=== PATIENT | male | born 1965 | race Caucasian/White ===

== ENCOUNTER 2017-10-22 15:56 | Emergency (ER) | payer BC ==
[2017-10-22] MEDS: ASPIRIN 81 MG TAB.CHEW PO ONE (16:30)
[2017-10-22] MEDS: NITROGLYCERIN SUBLINGUAL 0.4 MG BOTTLE OF 25. SL ONE (16:30)
[2017-10-22 16:53] LABS: BASO # 0.1 x10^3/uL (0.0-0.2); BASO % 1 % (0-3); EOS # 0.2 x10^3/uL (0.0-0.7); EOS % 2 % (0-3); HEMATOCRIT 48.2 % (39.0-53.0); HEMOGLOBIN 16.5 g/dL (13.0-17.5); LYMPH # 1.8 x10^3/uL (1.0-4.8); LYMPH % 17 % (24-48); MEAN CORPUSCULAR HEMOGLOBIN 30 pg (25-35); MEAN CORPUSCULAR HGB CONC 34 g/dL (31-37); MEAN CORPUSCULAR VOLUME 88 fL (79-100); MONO # 0.7 x10^3/uL (0.0-1.1); MONO % 7 % (0-9); NEUT # 7.4 x10^3uL (1.8-7.7); NEUT % 73 % (31-73); PLATELET COUNT 202 x10^3/uL (140-400); RED BLOOD COUNT 5.48 x10^6/uL (4.30-5.70); WHITE BLOOD COUNT 10.2 x10^3/uL (4.0-11.0)
--- NOTE | 2017-10-22 16:59 | RAD ---
PORTABLE CHEST 1V History: Chest pain for 3 days, lifetime heavy tobacco use for 45 years, cough Comparison: None. Findings: 2 AP portable views of the chest are submitted. There is mild apparent elevation of the left hemidiaphragm, adjacent mild airspace opacity. There is no pneumothorax. Heart size is considered within normal limits. There are several scattered small likely granulomas of the bilateral hemithoraces. Impression: 1. There is mild left base opacity which may be due to atelectasis or infiltrate. There are findings of old granulomatous disease. Electronically signed by: Abhinav Newsome MD (10/22/2017 4:56 PM) [facility]
[2017-10-22 17:03] LABS: ALBUMIN 3.7 g/dL (3.4-5.0); ALBUMIN/GLOBULIN RATIO 0.9 (1.0-1.7); CREATININE 0.9 mg/dL (0.7-1.3); GFR 87.9; MAGNESIUM 1.9 mg/dL (1.8-2.4); POTASSIUM 3.7 mmol/L (3.5-5.1); TOTAL BILIRUBIN 0.8 mg/dL (0.2-1.0); TOTAL PROTEIN 7.7 g/dL (6.4-8.2)
--- NOTE | 2017-10-22 17:11 | PHYS DOC ---
Past History Past Medical History: No Pertinent History Smoking: Cigarettes, Greater than 1 pack/day Adult General Chief Complaint Chief Complaint: CHEST PAIN HPI HPI 52-year-old male patient with history of smoking without medical problem and not having a primary care physician complaining of left lower chest wall pain with radiation to the lateral side of chest wall for the last 4 days as a constant pain that getting worse with sitting up and supine position and improving with bending over. Patient rated his pain 8/10 and states the pain getting worse with cough and movement and complaining of shortness of breath during episodes of movement. Patient complaining of chronic smoking cough that getting worse for the last few days and had few episodes of hemoptysis with old and fresh blood. Patient denies nausea, dizziness, fever and chills, chest injury, history of chest pain. Patient states he took [id number] pain medication without improvement of his pain. Patient denies family history of coronary artery disease. Review of Systems Review of Systems Constitutional: Denies fever or chills [] Eyes: Denies change in visual acuity, redness, or eye pain [] HENT: Denies nasal congestion or sore throat [] Respiratory: Reports cough and shortness of breath Cardiovascular: No additional information not addressed in HPI [] GI: Denies abdominal pain, nausea, vomiting, bloody stools or diarrhea [] : Denies dysuria or hematuria [] Musculoskeletal: Denies back pain or joint pain [] Integument: Denies rash or skin lesions [] Neurologic: Denies headache, focal weakness or sensory changes [] Endocrine: Denies polyuria or polydipsia [] All other systems were reviewed and found to be within normal limits, except as documented in this note. Current Medications Current Medications Current Medications Medications (Trade) Dose Ordered Sig/[facility] Start Time Stop Time Status Last Admin Dose Admin Aspirin (Children'S Aspirin) 324 mg 1X ONCE 10/22/17 17:00 10/22/17 17:01 DC 10/22/17 16:30 324 MG Ketorolac Tromethamine (Toradol) 30 mg 1X ONCE 10/22/17 17:15 10/22/17 17:16 UNV Nitroglycerin (Nitrostat) 0.4 mg 1X ONCE 10/22/17 17:00 10/22/17 17:01 DC 10/22/17 16:30 0.4 MG Allergies Allergies Allergies Coded Allergies Type Severity Reaction Last Updated Verified No Known Drug Allergies 10/22/17 No Physical Exam Physical Exam Constitutional: Well developed, well nourished, mild distress, non-toxic appearance. [] HENT: Normocephalic, atraumatic, oropharynx moist, no oral exudates, nose normal. [] Eyes: PERRLA, EOMI, conjunctiva normal, no discharge. [] Neck: Normal range of motion, no tenderness, supple, no stridor. [] Cardiovascular:Heart rate regular rhythm, no murmur [] Lungs & Thorax: Bilateral breath sounds clear to auscultation , reproducible lower chest wall pain[] Abdomen: Bowel sounds normal, soft, no tenderness, no masses, no pulsatile masses. [] Skin: Warm, dry, no erythema, no rash. [] Back: No tenderness, no CVA tenderness. [] Extremities: No tenderness, no cyanosis, no clubbing, ROM intact, no edema. [] Neurologic: Alert and oriented X 3, normal motor function, normal sensory function, no focal deficits noted. [] Psychologic: Affect normal, judgement normal, mood normal. [] Current Patient Data Vital Signs Vital Signs Date Time Temp Pulse Resp B/P (MAP) Pulse Ox O2 Delivery O2 Flow Rate FiO2 10/22/17 16:30 125/74 Lab Results Laboratory Tests Test 10/22/17 16:23 White Blood Count 10.2 x10^3/uL (4.0-11.0) Red Blood Count 5.48 x10^6/uL (4.30-5.70) Hemoglobin 16.5 g/dL (13.0-17.5) Hematocrit 48.2 % (39.0-53.0) Mean Corpuscular Volume 88 fL (79-100) Mean Corpuscular Hemoglobin 30 pg (25-35) Mean Corpuscular Hemoglobin Concent 34 g/dL (31-37) Red Cell Distribution Width 14.0 % (11.5-14.5) Platelet Count 202 x10^3/uL (140-400) Neutrophils (%) (Auto) 73 % (31-73) Lymphocytes (%) (Auto) 17 % (24-48) L Monocytes (%) (Auto) 7 % (0-9) Eosinophils (%) (Auto) 2 % (0-3) Basophils (%) (Auto) 1 % (0-3) Neutrophils # (Auto) 7.4 x10^3uL (1.8-7.7) Lymphocytes # (Auto) 1.8 x10^3/uL (1.0-4.8) Monocytes # (Auto) 0.7 x10^3/uL (0.0-1.1) Eosinophils # (Auto) 0.2 x10^3/uL (0.0-0.7) Basophils # (Auto) 0.1 x10^3/uL (0.0-0.2) Sodium Level 136 mmol/L (136-145) Potassium Level 3.7 mmol/L (3.5-5.1) Chloride Level 99 mmol/L (98-107) Carbon Dioxide Level 27 mmol/L (21-32) Anion Gap 10 (6-14) Blood Urea Nitrogen 8 mg/dL (8-26) Creatinine 0.9 mg/dL (0.7-1.3) Estimated GFR (Cockcroft-Gault) 87.9 BUN/Creatinine Ratio 9 (6-20) Glucose Level 93 mg/dL (70-99) Calcium Level 9.0 mg/dL (8.5-10.1) Magnesium Level 1.9 mg/dL (1.8-2.4) Total Bilirubin 0.8 mg/dL (0.2-1.0) Aspartate Amino Transferase (AST) 24 U/L (15-37) Alanine Aminotransferase (ALT) 36 U/L (16-63) Alkaline Phosphatase 99 U/L (46-116) Creatine Kinase 63 U/L (39-308) Creatine Kinase MB (Mass) 0.5 ng/mL (0.0-3.6) Creatine Kinase MB Relative Index 0.8 % (0-4) Troponin I Quantitative < 0.017 ng/mL (0-0.055) AK-Kjc-G-Type Natriuretic Peptide 66 pg/mL (0-124) Total Protein 7.7 g/dL (6.4-8.2) Albumin 3.7 g/dL (3.4-5.0) Albumin/Globulin Ratio 0.9 (1.0-1.7) L Lipase 83 U/L (73-393) EKG EKG EKG interpreted by me. EKG at 1602 showed normal sinus rhythm at rate of 80, poor R-wave progress on anteroseptal leads, no acute ST and T wave abnormality[] Radiology/Procedures Radiology/Procedures [] [address] [address] IMAGING REPORT Signed PATIENT: SONAM CHRISTIANSON ACCOUNT: [id number] : 1965 LOCATION: ER AGE: 52 SEX: M EXAM STATUS: REG ER ORD. PHYSICIAN: XIN RODARTE MD REASON: chest pain PROCEDURE: PORTABLE CHEST 1V PORTABLE CHEST 1V History: Chest pain for 3 days, lifetime heavy tobacco use for 45 years, cough Comparison: None. Findings: 2 AP portable views of the chest are submitted. There is mild apparent elevation of the left hemidiaphragm, adjacent mild airspace opacity. There is no pneumothorax. Heart size is considered within normal limits. There are several scattered small likely granulomas of the bilateral hemithoraces. Impression: 1. There is mild left base opacity which may be due to atelectasis or infiltrate. There are findings of old granulomatous disease. Electronically signed by: Nasreen Newsome MD (10/22/2017 4:56 PM) [facility] DICTATED AND SIGNED BY: NASREEN NEWSOME MD DATE: 10/22/17 165 CC: XIN RODARTE MD; PCP,NO ~ Course & Med Decision Making Course & Med Decision Making Pertinent Labs and Imaging studies reviewed. (See chart for details) Evaluation of patient in ER showed 52-year-old male patient with complaining of left lower chest wall pain for 4 days that getting worse with movement. Patient had reproducible chest wall pain with unremarkable EKG and labs. Nitroglycerin did not help for pain but patient felt better with Toradol. Plan discharge patient home with diagnosis of muscular skeletal chest wall pain. Patient instructed to quit smoking and follow up with a primary care physician. [] Dragon Disclaimer Dragon Disclaimer This electronic medical record was generated, in whole or in part, using a voice recognition dictation system. Departure Departure: Impression: Primary Impression: Musculoskeletal chest pain Additional Impressions: Tobacco abuse Tobacco abuse counseling Disposition: HOME, SELF-CARE (At 1735) Condition: IMPROVED Referrals: PCP,NO (PCP) ALICIA DOW MD Patient Instructions: Chest Wall Pain, Smoking Cessation, Smoking Cessation, Tips For Success Additional Instructions: Quit smoking Follow-up with your primary care physician in 3-5 days Return to ER if not getting better Scripts Naproxen (NAPROSYN) 500 Mg Tablet 1 TAB PO BID, #20 TAB 2 Refills Prov: XIN RODARTE MD 10/22/17 Cyclobenzaprine Hcl (CYCLOBENZAPRINE HCL) 10 Mg Tablet 1 TAB PO TID, #30 TAB Prov: XIN RODARTE MD 10/22/17 Problem Qualifiers XIN RODARTE MD Oct 22, 2017 17:11
[2017-10-22] MEDS: KETOROLAC 30 MG/ML VIAL. IV ONE (17:18)
[2017-10-22] MEDS ORDERED: NAPR-683 PO (17:27)
[2017-10-22] MEDS ORDERED: CYCL-331 PO (17:27)
--- NOTE | 2017-10-22 17:27 | EKG ---
[address] [address] Test Date: 2017-10-22 Test Time: 16:02:53 Pat Name: SONAM CHRISTIANSON Department: Room: Gender: M Rn Hospital: : 1965 Requested By: XIN RODARTE Order Number: [id number] Reading MD: Measurements Intervals [place] Rate: 80 P: 45 IN: 152 QRS: 54 QRSD: 88 T: 42 QT: 338 QTc: 393 Interpretive Statements SINUS RHYTHM QRS(T) CONTOUR ABNORMALITY CONSIDER ANTEROSEPTAL MYOCARDIAL DAMAGE POSSIBLY ABNORMAL ECG RI6.01 No previous ECG available for comparison
[2017-10-22 17:35] VITALS: BP 124/67
== END 2017-10-22 18:00 | disposition home or self-care (01) ==
LOC: ER 15:56
DX: R07.89 Other chest pain (principal); F17.210 Nicotine dependence, cigarettes, uncomplicated; Z71.6 Tobacco abuse counseling
CPT/HCPCS: 36415; 71045; 80053; 82553; 83690; 83735; 83880; 84484; 85025; 85610; 93005; 96374; 99285; J1885

== ENCOUNTER → 2017-12-21 | Outpatient (CLI) | payer BC ==
[~2017-12-21] MED LIST: CYCL-331 PO; IOHEXOL 300 MG/ML 75 ML VIAL. IV ONE; NAPR-683 PO
--- NOTE | 2017-12-21 09:44 | RAD ---
CT CHEST W/CONTRAST Indication: Coughing up bloody sputum Technique: Postcontrast CT imaging was performed of the chest, multiplanar reconstruction images submitted. One or more of the following individualized dose reduction techniques were utilized for this examination: 1. Automated exposure control 2. Adjustment of the mA and/or kV according to patient size 3. Use of iterative reconstruction technique. Contrast: 75 cc Omnipaque 300 Comparison: None Findings: There is fairly prominent infiltrate with air bronchograms the right lower lobe, adjacent groundglass infiltrate and small right pleural effusion. There is some mostly linear likely atelectasis of the left lower lobe and fibrotic change or atelectasis of the lingula. There are some calcified nodules bilaterally. There is no pneumothorax. There is no left pleural fluid. Major airways are patent. There is 1 cm short axis dimension node superior mediastinum. Thoracic aortic caliber is within normal limits without dissection flap. IMPRESSION: 1. There is prominent right lower lobe infiltrate, small right pleural effusion. 2. There are findings of old granulomatous disease. 3. There is nonspecific borderline enlarged superior mediastinal node. Electronically signed by: Abhinav Newsome MD (12/21/2017 9:41 AM) [facility]
== END | disposition home or self-care (01) ==
LOC: PMG 08:14
PROVIDERS: ATTEND Physician Assistant Medical
DX: J90 Pleural effusion, not elsewhere classified (principal); F17.210 Nicotine dependence, cigarettes, uncomplicated
CPT/HCPCS: 71260; Q9967

== ENCOUNTER → 2021-03-30 | Day surgery (SDC) | payer BC ==
[~2021-03-30] MED LIST changes: -IOHEXOL 300 MG/ML 75 ML VIAL. IV ONE; +LIDOCAINE 1%/EPI 1:100,000 20 ML VIAL. ONE; +VARE1TAB20 PO
--- NOTE | 2021-03-30 07:52 | PDOC1 ---
History of Present Illness Reason for Visit: Excision of skin lesions History of Present Illness 56-year-old male with complaints of a large mass behind his right ear as well as 2 masses on his left cheek that of been increasing in size Allergies: Coded Allergies: No Known Drug Allergies (Unverified , 03/18/21) Past Medical History Cardiac: No pertinent hx Pulmonary: No pertinent hx GI: No pertinent hx Heme/Onc: No pertinent hx Hepatobiliary: No pertinent hx Psych: No pertinent hx Musculoskeletal: No pertinent hx Rheumatologic: No pertinent hx Infectious disease: No pertinent hx ENT: No pertinent hx Renal/: No pertinent hx Endocrine: No pertinent hx Dermatology: No pertinent hx Past Surgical History: Cataract Removal Family History: No pertinent hx Past Social History Smoke: No Alcohol: none Drugs: None Lives: with Family Review of Systems Review Of Systems Fourteen system , review of systems has been reviewed. See HPI for pertinent positives and negative responses, other rose all other systems are negative, non pertinent or non contributory Medications Active Scripts Active Naprosyn (Naproxen) 500 Mg Tablet 1 Tab PO BID Cyclobenzaprine Hcl 10 Mg Tablet 1 Tab PO TID Reported Chantix (Varenicline Tartrate) 1 Each Tab.ds.pk 1 Mg PO UD Exam General Appearance: Alert, Oriented X3, Cooperative, No acute distress HEENT: Atraumatic, PERRLA, EOMI Respiratory: Clear to auscultation, Normal air movement Heart: Regular rate, No murmurs Abdominal: Normal bowel sounds, Soft, No tenderness Extremities: No edema Skin: No rashes, No breakdown, No significant lesion (Subcutaneous mass behind the right ear postauricular area as well as 2 large skin lesions left cheek) Neuro: Normal speech Assessment/Plan Assessment/Plan Plan excision of subcutaneous mass right post auricular area and to left cheek skin lesions for removal COURSE Allergies Coded Allergies Type Severity Reaction Last Updated Verified No Known Drug Allergies 03/18/21 No Justification of Admission: Justification of Admission: Justification of Admission Dx: N/A NABIL RIBEIRO MD Mar 30, 2021 07:52
[2021-03-30] MEDS: LIDOCAINE 1%/EPI 1:100,000 20 ML VIAL. INJ ONE (08:10)
[2021-03-30] MEDS: NEOMY/BACITR/POLYMYXIN OINT PACKET. TP ONE (08:51)
--- NOTE | 2021-03-30 08:55 | PDOC4 ---
Operative Report DATE March 30, 2021 at 852 Preop Diagnosis Subcutaneous mass right postauricular area 3 x 3 cm Skin lesion x2 left cheek upper cheek mass 2 cm lower cheek mass 1 cm Post-op Diagnosis Same Operation Performed Excision of subcutaneous mass and skin lesions Patient is a 56-year-old male with complaints of enlarging masses on the postauricular area in the right neck and left cheek. The procedure of excisions were explained to the patient detail risk-benefit were also discussed occluding bleeding infection alternatives to this procedure also discussed with the patient who seemed to understand and gave a verbal written consent had a procedure performed. Patient was taken to the operating room placed in the supine position. The area in the right postauricular space was prepped and draped in usual sterile fashion using ChloraPrep. An area over the mass was injected with 1% lidocaine with epinephrine once this anesthetized incision was made with 15 blade scalpel and the mass was excised with Metzenbaum scissors. The mass size was 3 cm 1 cm margin. The wound was then closed in a single layer 4-0 subcuticular Monocryl Mastisol Steri-Strips and island dressing were applied. Patient was repositioned in access to his left cheek it was prepped and draped usual sterile fashion using ChloraPrep the upper mass which was 2 cm was injected with 1% lidocaine with epinephrine and sharply excised with 15 blade scalpel with no margin the wound was cauterized and dressed with antibiotic ointment and island dressing. Secondly the lower mass was excised in a similar fashion cauterized and dressed with antibiotic ointment and island dressing. Patient tolerated procedure well was discharged home in stable condition all sponge instrument needle counts listed as correct estimated blood loss less than 5 mL Surgeon Gabino ANESTHESIA PROPOSED: LOCAL Blood Loss 5 mL Specimen Right postauricular mass 3 x 3 cm, upper left cheek mass 2 cm, left lower cheek mass 1 cm Complications None NABIL RIBEIRO MD Mar 30, 2021 08:55
--- NOTE | 2021-03-30 08:56 | DISCH ---
DISCHARGE INSTRUCTIONS-DC Condition on Discharge Condition on Discharge: Stable Activity after Discharge Activity Instructions for Disc: No restrictions Diet after Discharge Diet after Discharge: Regular Wound/Incision Care Other wound/incision instructi: Radha shower in 24 hours Contacting the [facility] after DC Call your doctor for: If your condition worsens Follow-Up Follow up with: Dr. Ribeiro in 2 weeks NABIL RIBEIRO MD Mar 30, 2021 08:56
[2021-03-30 09:04] VITALS: BP 136/68
--- NOTE | 2021-03-31 17:08 | PATHOLOGY ---
[facility] Accession Number: [id number] . 01 Material submitted: . PART A: POSTAURICULAR AREA - R POST AURICULAR MASS. Modifiers: right, posterior PART B: neck - L UPPER NECK LESION. Modifiers: left, upper PART C: neck - L LOWER NECK LESION. Modifiers: left, lower . 02 Diagnosis: A. Segment of fibroadipose tissue, right postauricular mass: - Lipoma. . B. Skin, left upper neck lesion, biopsy: - Intradermal melanocytic nevus, involving the deep biopsy margin. . C. Skin, left lower neck lesion, biopsy: - Intradermal melanocytic nevus, involving the deep biopsy margin. . ([facility]:[place]; 03/31/2021) [facility] 03/31/2021 1648 Local . 02 Comment: There is no evidence of malignancy. . ([facility]:[place]; 03/31/2021) . 02 Electronically signed: . Everton Mancuso MD, Pathologist NPI- [id number] . 01 Gross description: . A. Fixative: Formalin Labeled: R post auricular mass Specimen received: Intact, single segment of pale yellow to light hawkins lobulated tissue Dimensions: 3.3 x 2.3 x 1.5 cm External surface: Pale charles to pale yellow to light hawkins, roughened and slightly shaggy Cut surface: Pale yellow, glistening, lobulated . Continuous Drier Operator sections are submitted in A1-A2. . B. The specimen is submitted in formalin, labeled "Ethan Crook, left upper neck lesion". Received is a shave biopsy measuring 1.1 x 0.9 x 0.4 cm in greatest dimensions. The epidermal surface is pale charles to red-brown and slightly polypoid in appearance. The surgical margin is inked. The specimen is serially sectioned and entirely submitted in cassette B1. . C. The specimen is submitted in formalin, labeled "Ethan Crook, left lower neck lesion". Received is a shave biopsy measuring 0.8 x 0.7 x 0.3 cm in greatest dimensions. The epidermal surface is pale charles to light hawkins and slightly wrinkled in appearance. The surgical margin is inked. The specimen is trisected and entirely submitted in cassette C1. ([facility]; 03/30/2021) NRI/NRI 03/30/2021 1559 Local . 02 Pathologist provided ICD-10: D17.79, D22.4 . 02 CPT . 114166, 173149, 285622 Specimen Comment: A courtesy copy of this report has been sent to [phone], [phone] Specimen Comment: [id number] Specimen Comment: Report sent to / DR RIVAS Performed at: 01 [facility] [address], [place], [place] [id number] MD Dakota Mancilla MD Phone: [phone] Performed at: 02 [facility] [address] [place], [place] [id number] MD Everton Mancuso MD Phone: [phone]
== END | disposition home or self-care (01) ==
LOC: SURG 07:30
PROVIDERS: ATTEND Surgery
DX: D17.79 Benign lipomatous neoplasm of other sites (principal); D22.39 Melanocytic nevi of other parts of face; Z98.890 Other specified postprocedural states; Z20.822 Contact with and (suspected) exposure to COVID-19
CPT/HCPCS: 11442; 11443; 21012; C9803; U0003